=== PATIENT | male | born 1995 | race Caucasian/White ===

== ENCOUNTER 2024-12-05 18:13 | Emergency (ER) | payer OTHER ==
[~2024-12-05] VITALS: Ht 177.8 cm; Wt 82.0 kg
[2024-12-05] VITALS (9 sets, daily range): BP systolic 114–127; BP diastolic 71–77
[~2024-12-05 18:13] MED LIST: AUGMENTIN875 MG OR; CIPROFLOXACN500 MG PO; DENIES CURRENT MEDS; KEFLEX500 MG PO; METRONIDAZOL500 MG PO; NO MEDS; ONDANSETRON4 MG PO; PROMETHAZINE25 M1 RE; ZITHROMAX250 MG PO
[2024-12-05] MEDS ORDERED: PROPRANOLOL HYD40 MG (18:41)
[2024-12-05] MEDS ORDERED: SODIUM CHLORIDE 0.9% 1,000 ML IV ONE ×2 (18:45)
[2024-12-05] MEDS ORDERED: ONDANSETRON HCl 4 MG/2 ML SDV IV ONE (18:45)
[2024-12-05 18:56] LABS: BASO% 0.1 % (0-3); EOS% 0.6 % (0-8); HEMATOCRIT 48.9 % (39.0-50.0); HEMOGLOBIN 16.1 g/dl (14.0-18.0); IMMATURE GRANULOCYTES 0.2 % (0.0-5.0); MEAN CELL VOLUME 95.9 fL CALC (80.0-100.0); MEAN CORPUSCULAR HGB 31.6 pG CALC (26.0-32.0); MEAN CORPUSCULAR HGB CONC 32.9 g/dL CAL (32.0-36.0); MONO% 5.3 % (2-13); NEUT# 11.42 thou/uL (1.82-7.42); NEUT% 89.8 % (42-76); RED BLOOD COUNT 5.1 mill/uL (4.70-6.10); RED CELL DISTRI WIDTH 11.7 % (11.5-15.5)
[2024-12-05] MEDS ORDERED: KETOROLAC TROMETHAMINE 30 MG/ML SDV IV ONE (19:05)
[2024-12-05] MEDS ORDERED: LOPERAMIDE HCL 2 MG CAP PO ONE (19:05)
[2024-12-05 19:08] LABS: ALBUMIN 5.3 g/dL (3.2-5.0); BILIRUBIN, TOTAL 0.8 mg/dL (0.2-1.3); CREATININE 1.2 mg/dL (0.7-1.3)
[2024-12-05] MEDS ORDERED: PROMETHAZINE HY25 M1 PO (20:07)
[2024-12-05] MEDS ORDERED: PROMETHAZINE HCL 25 MG/TAB PO ONE (20:10)
== END 2024-12-05 20:30 | disposition home or self-care (01) | DRG 392 ==
LOC: ED 18:13
PROVIDERS: Family Medicine
DX: A08.4 Viral intestinal infection, unspecified (principal); G25.0 Essential tremor; Z20.822 Contact with and (suspected) exposure to COVID-19
CPT/HCPCS: J2405